=== PATIENT | female | born 1930 | race Caucasian/White ===

== ENCOUNTER 2017-03-01 10:04 | Day surgery (SDC) | payer OTHER ==
[2017-03-01] MEDS ORDERED: fentaNYL 100 MCG/2 ML INJ IVP ONE (10:08)
[2017-03-01] MEDS ORDERED: PROPOFOL 200 MG/20 ML VIAL IVP ONE (10:08)
[2017-03-01] MEDS ORDERED: MIDAZOLAM 2 MG/2 ML VIAL IVP ONE (10:08)
[2017-03-01] MEDS ORDERED: NS 500 ML IV ONE (10:08)
[2017-03-01] MEDS ORDERED: ETOMIDATE 20 MG/10 ML VIAL IVP ONE (10:08)
[2017-03-01] MEDS ORDERED: ETOMIDATE 40 MG/20 ML INJ ONE (10:10)
[2017-03-01] MEDS ORDERED: fentaNYL 100 MCG/2 ML INJ ONE (10:11)
[2017-03-01] MEDS ORDERED: MIDAZOLAM 2 MG/2 ML VIAL ONE (10:11)
--- NOTE | 2017-03-01 10:25 | CPEKG ---
Heart Rate: 145 RR Interval: 414 QRSD Interval: 84 QT Interval: 320 QTC Interval: 497 QRS [place]: -60 T Wave [place]: -43 EKG Severity - ABNORMAL ECG - EKG Impression: ATRIAL FIBRILLATION, V-RATE 81-160 EKG Impression: LEFT ANTERIOR FASCICULAR BLOCK EKG Impression: LOW VOLTAGE IN FRONTAL LEADS EKG Impression: REPOLARIZATION ABNORMALITY, PROB RATE RELATED EKG Impression: BORDERLINE PROLONGED QT INTERVAL EKG Impression: ATRIAL FIBRILLATION IS NEW IN COMPARISON TO PRIOR ECG Electronically Signed By: Johnathan Roman 02-Mar-2017 14:31:29
[2017-03-01 10:55] LABS: APTT 24.6 SEC (23.0-38.0); INR 1.04 (0.83-1.16); PROTIME(PATIENT) 13.5 SEC (12.0-15.0)
[2017-03-01 11:00] LABS: ANION GAP 10 mEq/L (8-16); CALCIUM 9.6 mg/dL (8.5-10.4); CARBON DIOXIDE 24 mEq/l (22-31); CHLORIDE 105 mEq/L (97-110); CREATININE 0.9 mg/dL (0.6-1.0); GLOMERULAR FILTRATION RATE 59; GLUCOSE 113 mg/dL (70-100); MAGNESIUM 2.2 mg/dL (1.6-2.3); SODIUM 139 mEq/L (134-144)
--- NOTE | 2017-03-01 12:15 | PDTEE1 ---
GREGOR Cardioversion Procedure Procedure: Electrical Cardioversion, Transesophageal Echo Indications: Atrial Fibrillation Consent: Signed and in Chart Anticoagulation: Heparin Procedural Details: The pads were placed in the anterior-posterior position and the GREGOR probe was advanced with standard images obtained. There was no evidence of left atrial or left atrial appendage thrombus. Synchronized cardioversion attempt #1: 200J Results: Normal sinus rhythm Conclusions: Successful GREGOR Cardioversion Patient Problems: Problems Problem Status Onset Hypertension Acute Near syncope Acute
--- NOTE | 2017-03-01 12:26 | CPEKG ---
Heart Rate: 75 RR Interval: 800 P-R Interval: 160 QRSD Interval: 88 QT Interval: 404 QTC Interval: 452 P [place]: 36 QRS [place]: -64 T Wave [place]: 7 EKG Severity - ABNORMAL ECG - EKG Impression: SINUS RHYTHM EKG Impression: LEFT ANTERIOR FASCICULAR BLOCK EKG Impression: BORDERLINE T ABNORMALITIES, ANTERIOR LEADS EKG Impression: NORMAL SINUS RHYTHM HAS REPLACED ATRIAL FIBRILLATION Electronically Signed By: Johnathan Roman 02-Mar-2017 14:31:49
== END 2017-03-01 14:33 | disposition home or self-care (01) ==
LOC: FCATH 10:04
PROVIDERS: ATTEND Internal Medicine Cardiovascular Disease
DX: I48.91 Unspecified atrial fibrillation (principal); I10 Essential (primary) hypertension; I65.29 Occlusion and stenosis of unspecified carotid artery; E78.5 Hyperlipidemia, unspecified; I08.0 Rheumatic disorders of both mitral and aortic valves
CPT/HCPCS: J1642; J2250; J3010

== ENCOUNTER → 2017-10-23 | Outpatient (CLI) | payer OTHER | LOC: FIMAGING 09:12 | PROVIDERS: ATTEND Family Medicine | DX: Z12.31 Encounter for screening mammogram for malignant neoplasm of breast (principal); Z13.820 Encounter for screening for osteoporosis; M85.89 Other specified disorders of bone density and structure, multiple sites | CPT/HCPCS: G0202 ==

== ENCOUNTER 2018-02-20 13:53 | Emergency (ER) | payer OTHER ==
[2018-02-20] MEDS ORDERED: NS 1,000 ML IV ONE (14:16)
[2018-02-20] MEDS ORDERED: DILTIAZEM 25 MG/5 ML VIAL IVP ONE (14:16)
--- NOTE | 2018-02-20 14:22 | EDPHY ---
H & P Stated Complaint: dizzy/tachycardia/irreg pulse with hx afib since monday Time Seen by Provider: 02/20/18 14:10 HPI/ROS: CHIEF COMPLAINT: Atrial fibrillation HISTORY OF PRESENT ILLNESS: The patient is an 87-year-old female who presented to her primary today complaining of weakness and palpitations since Monday. She had a fainting episode as well on Monday. Her primary noticed that she was in atrial fibrillation and sent her to the ER. She does have a history of this and sees Dr. Chaney at [facility]. She is taking Eliquis faithfully. She denies any history of stroke or seizures. She denies any history of coronary artery disease. She has been cardioverted successfully in the past. She has not had any recent fevers or infections. No chest pain or nausea vomiting. REVIEW OF SYSTEMS: Constitutional: denies: chills, fever, recent illness, recent injury EENTM: denies: blurred vision, double vision, nose congestion Respiratory: denies: cough, shortness of breath Cardiac: See HPI Gastrointestinal/Abdominal: denies: abdominal pain, diarrhea, nausea, vomiting, blood streaked stools Genitourinary: denies: dysuria, frequency, hematuria, pain Musculoskeletal: denies: joint pain, muscle pain Skin: denies: lesions, rash, jaundice, bruising Neurological: denies: headache, numbness, paresthesia, tingling, dizziness, weakness Hematologic/Lymphatic: denies: blood clots, easy bleeding, easy bruising Immunologic/allergic: denies: HIV/AIDS, transplant EXAM: GENERAL: Well-appearing, well-nourished and in no acute distress. HEAD: Atraumatic, normocephalic. EYES: Pupils equal round and reactive to light, extraocular movements intact, sclera anicteric, conjunctiva are normal. ENT: TMs normal, nares patent, oropharynx clear without exudates. Moist mucous membranes. NECK: Normal range of motion, supple without lymphadenopathy or JVD. LUNGS: Breath sounds clear to auscultation bilaterally and equal. No wheezes rales or rhonchi. HEART: Irregular rhythm without murmurs, rubs or gallops. ABDOMEN: Soft, nontender, normoactive bowel sounds. No guarding, no rebound. No masses appreciated. BACK: No CVA tenderness, no spinal tenderness, step-offs or deformities EXTREMITIES: Normal range of motion, no pitting or edema. No clubbing or cyanosis. NEUROLOGICAL: Cranial nerves II through XII grossly intact. Normal speech, normal gait. 5/5 strength, normal movement in all extremities, normal sensation PSYCH: Normal mood, normal affect. SKIN: Warm, dry, normal turgor, no visible rashes or lesions. Source: Patient - Personal History Current Tetanus/Diphtheria Vaccine: Unsure Tetanus Vaccine Date: 2005 - Medical/Surgical History Hx Asthma: No Hx Chronic Respiratory Disease: No Hx Diabetes: No Hx Cardiac Disease: Yes Hx Renal Disease: No Hx Cirrhosis: No Hx Alcoholism: No Hx HIV/AIDS: No Hx Splenectomy or Spleen Trauma: No Other PMH: HTN, appendectomy, anxiety afib - Family History Significant Family History: No pertinent family hx - Social History Smoking Status: Never smoked Alcohol Use: Sober Drug Use: None Constitutional: Initial Vital Signs Temperature (C) 36.5 C 02/20/18 14:00 Heart Rate 145 H 02/20/18 14:00 Respiratory Rate 20 02/20/18 14:00 Blood Pressure 115/89 H 02/20/18 14:00 O2 Sat (%) 98 02/20/18 14:00 O2 Delivery Mode [Procedural Non-Rebreather Mask 4th] O2 Delivery Mode [Procedural Non-Rebreather Mask 3rd] O2 Delivery Mode [Post Non-Rebreather Mask Procedure 2nd] O2 Delivery Mode [Post Non-Rebreather Mask Procedure 1st] O2 Delivery Mode [.Immediate Non-Rebreather Mask Pre-Procedure] O2 Delivery Mode Room Air O2 (L/minute) [Procedural 4th] 15 O2 (L/minute) [Procedural 3rd] 15 O2 (L/minute) [Post Procedure 15 2nd] O2 (L/minute) [Post Procedure 15 1st] O2 (L/minute) [.Immediate Pre- 15 Procedure] O2 (L/minute) 15 Allergies/Adverse Reactions: No Known Allergies Allergy (Verified 02/20/18 13:59) Home Medications: Medication Instructions Recorded Acetaminophen [Tylenol 325mg (*)] 650 mg PO BID PRN 03/19/13 Herbals/Supplements -Info Only 1 each PO AD 03/19/13 Melatonin [Melatonin 3 MG (*)] 3 mg PO HS 03/19/13 Multivitamins [Multivitamin (*)] 1 each PO DAILY 03/19/13 Psyllium Husk (with Sugar) 1 each PO DAILY PRN 03/19/13 [Metamucil Packet] busPIRone HCL [Buspirone HCl] 15 mg PO TID 03/19/13 Aspirin EC [Aspirin EC 81 mg (*)] 81 mg PO DAILY 02/09/16 Losartan Potassium [Cozaar 50 mg 50 mg PO BID@12,18 02/09/16 (*)] Pravastatin Sodium 20 mg PO DAILY 02/09/16 traZODone [traZODONE 50MG (*)] 25 mg PO HS 02/09/16 Labetalol HCl [Trandate 200 mg (*)] 400 mg PO DAILY #90 tab 02/10/16 amLODIPine BESYLATE [Norvasc 5 mg 5 mg PO DAILY #30 tab 02/10/16 (*)] DULoxetine 08/21/16 Eliquis 02/20/18 Medical Decision Making - Diagnostics EKG Interpretation: An EKG obtained and was read and documented in trace view. Please see trace view for full reading and report. Atrial fibrillation, no acute ischemic changes A repeat EKG obtained and was read and documented in trace view. Please see trace view for full reading and report. Sinus rhythm, no acute ischemic changes single PAC Imaging Results: Imaging Impressions Chest X-Ray 02/20/18 14:17 Impression: Chronic cardiomegaly without decompensation or underlying pneumonia. Imaging: Discussed imaging studies w/ call center recruiter Radiologist Procedures: ED cardioversion: The patient was sedated with ketamine and propofol. She was cardioverted with seeing to 120 joules. She is cardioverted successfully in the 1st attempt. She tolerated the procedure well. Repeat EKG is reassuring. ED Course/Re-evaluation: 3:50 p.m. I discussed the case with Dr. Shayne Guardado who recommends cardioversion here in the ER and follow up with Dr. Chaney. As long as she is confident she has not missed any doses of Eliquis. 5:00 p.m. the patient is feeling completely better. She is eager to go home. Her daughter is well to take her. She remains in sinus rhythm and has stable vital signs. She will follow up with car framer next day or 2. They did not recommend any changed her medications at this time. Differential Diagnosis: Partial list of the Differential diagnosis considered include but were not limited to; atrial fibrillation, anxiety, dehydration, electrolyte abnormality and although unlikely based on the history and physical exam, I also considered SVT, acute coronary disease. - Data Points Laboratory Results: Laboratory Results 02/20/18 14:22 02/20/18 14:22 02/20/18 02/20/18 02/20/18 14:22 14:22 14:22 WBC 8.54 10^3/uL 10^3/uL (3.80-9.50) RBC 5.15 10^6/uL 10^6/uL (4.18-5.33) Hgb 15.0 g/dL g/dL (12.6-16.3) Hct 45.3 % % (38.0-47.0) MCV 88.0 fL fL (81.5-99.8) MCH 29.1 pg pg (27.9-34.1) MCHC 33.1 g/dL g/dL (32.4-36.7) RDW 12.9 % % (11.5-15.2) Plt Count 273 10^3/uL 10^3/uL (150-400) MPV 8.8 fL fL (8.7-11.7) Neut % (Auto) 72.0 % % (39.3-74.2) Lymph % (Auto) 18.1 % % (15.0-45.0) [place] % (Auto) 8.7 % % (4.5-13.0) Eos % (Auto) 0.6 % % (0.6-7.6) Baso % (Auto) 0.4 % % (0.3-1.7) Nucleat RBC Rel Count 0.0 % % (0.0-0.2) Absolute Neuts (auto) 6.15 10^3/uL 10^3/uL (1.70-6.50) Absolute Lymphs (auto) 1.55 10^3/uL 10^3/uL (1.00-3.00) Absolute Monos (auto) 0.74 10^3/uL 10^3/uL (0.30-0.80) Absolute Eos (auto) 0.05 10^3/uL 10^3/uL (0.03-0.40) Absolute Basos (auto) 0.03 10^3/uL 10^3/uL (0.02-0.10) Absolute Nucleated RBC 0.00 10^3/uL 10^3/uL (0-0.01) Immature Gran % 0.2 % % (0.0-1.1) Immature Gran # 0.02 10^3/uL 10^3/uL (0.00-0.10) PT 13.8 SEC SEC (12.0-15.0) INR 1.04 (0.83-1.16) APTT 28.2 SEC SEC (23.0-38.0) Sodium 137 mEq/L mEq/L (135-145) Potassium 4.7 mEq/L mEq/L (3.5-5.2) Chloride 104 mEq/L mEq/L (97-110) Carbon Dioxide 21 mEq/l L mEq/l (22-31) Anion Gap 12 mEq/L mEq/L (8-16) BUN 19 mg/dL mg/dL (7-23) Creatinine 0.8 mg/dL mg/dL (0.6-1.0) Estimated GFR > 60 Glucose 103 mg/dL H mg/dL (70-100) Calcium 9.9 mg/dL mg/dL (8.5-10.4) Troponin I < 0.012 ng/mL ng/mL (0.000-0.034) Medications Given: Discontinued Medications Diltiazem HCl (Cardizem) 10 mg IV EDNOW ONE Stop: 02/20/18 15:01 Last Admin: 02/20/18 14:59 Dose: 10 mg Sodium Chloride (Ns) 1,000 mls @ 0 mls/hr IV EDNOW ONE; Wide Open PRN Reason: Protocol Stop: 02/20/18 14:17 Last Admin: 02/20/18 14:58 Dose: 1,000 mls Ketamine HCl (Ketamine) 50 mg IVP EDNOW ONE Stop: 02/20/18 16:16 Last Admin: 02/20/18 16:17 Dose: 50 mg Propofol (Diprivan) 40 mg IVP EDNOW ONE Stop: 02/20/18 16:16 Last Admin: 02/20/18 16:19 Dose: 40 mg Departure - Departure Disposition: Home, Routine, Self-Care Clinical Impression: Atrial fibrillation Qualifiers: Atrial fibrillation type: paroxysmal Qualified Code(s): I48.0 - Paroxysmal atrial fibrillation Condition: Fair Instructions: A-fib (Atrial Fibrillation) (ED), Cardioversion (DC), Procedural Sedation (ED) Additional Instructions: FOLLOW UP WITH YOUR POULTRY TRIMMER THIS WEEK, RETURN TO EMERGENCY DEPARTMENT FOR CONCERNS OR RETURN OF SYMPTOMS. CONTINUE YOUR REGULAR MEDICATIONS. Referrals: Key Tang MD [Primary Care Provider] - As per Instructions Papa Chaney MD [Medical Doctor] - 2-3 days, call for appt.
--- NOTE | 2018-02-20 14:28 | CPEKG ---
Heart Rate: 139 RR Interval: 432 QRSD Interval: 88 QT Interval: 316 QTC Interval: 481 QRS [place]: -52 T Wave [place]: -38 EKG Severity - ABNORMAL ECG - EKG Impression: ATRIAL FIBRILLATION, V-RATE 95-170 EKG Impression: MULTIFORM VENTRICULAR PREMATURE COMPLEXES EKG Impression: LEFT ANTERIOR FASCICULAR BLOCK EKG Impression: LOW VOLTAGE IN FRONTAL LEADS Electronically Signed By: Ricky Key 20-Feb-2018 14:36:09
[2018-02-20 14:38] LABS: PLATELET COUNT 273 10^3/uL (150-400)
[2018-02-20 14:47] LABS: INR 1.04 (0.83-1.16); PROTIME(PATIENT) 13.8 SEC (12.0-15.0)
[2018-02-20] MEDS ORDERED: DILTIAZEM 50 MG/10 ML VIAL IV ONE (15:00)
[2018-02-20] MEDS ORDERED: PROPOFOL 200 MG/20 ML VIAL ONE (16:03)
[2018-02-20] MEDS ORDERED: KETAMINE 200 MG/20 ML VIAL ONE (16:03)
[2018-02-20] MEDS ORDERED: KETAMINE 200 MG/20 ML VIAL IVP ONE (16:15)
[2018-02-20] MEDS ORDERED: PROPOFOL 200 MG/20 ML VIAL IVP ONE (16:15)
--- NOTE | 2018-02-20 16:30 | CPEKG ---
Heart Rate: 77 RR Interval: 779 P-R Interval: 164 QRSD Interval: 92 QT Interval: 404 QTC Interval: 458 P [place]: 33 QRS [place]: -66 T Wave [place]: -12 EKG Severity - ABNORMAL ECG - EKG Impression: SINUS RHYTHM EKG Impression: ATRIAL PREMATURE COMPLEX EKG Impression: LEFT ANTERIOR FASCICULAR BLOCK EKG Impression: BORDERLINE T ABNORMALITIES, DIFFUSE LEADS Electronically Signed By: Ricky Key 20-Feb-2018 17:22:10
[2018-02-20 17:21] VITALS: BP 134/84
== END 2018-02-20 17:32 | disposition home or self-care (01) ==
PROC: 5A2204Z Restoration of Cardiac Rhythm, Single (ICD-10-PCS; principal; 2018-02-20)
DX: I48.0 Paroxysmal atrial fibrillation (principal); I10 Essential (primary) hypertension; Z79.82 Long term (current) use of aspirin
CPT/HCPCS: 71046; 92960; 93005; 96361; 96374; 99285; J2704

== ENCOUNTER 2019-03-22 08:18 | Day surgery (SDC) | payer OTHER ==
[2019-03-22] MEDS ORDERED: ATROPINE SULFATE 1 MG/10 ML SYR IVP ONE (08:20)
[2019-03-22] MEDS ORDERED: NS 500 ML IV ONE (08:20)
[2019-03-22] MEDS ORDERED: fentaNYL 100 MCG/2 ML INJ IVP ONE (08:20)
[2019-03-22] MEDS ORDERED: BENZOCAINE UNIT DOSE SPRAY HURRICAINE MM ONE (08:20)
[2019-03-22] MEDS ORDERED: MIDAZOLAM 2 MG/2 ML VIAL IVP ONE (08:20)
--- NOTE | 2019-03-22 09:07 | PDANEPAE ---
ANE History of Present Illness CV poss. GREGOR ANE Past Medical History - Cardiovascular History Hx Hypertension: Yes Hx Arrhythmias: Yes Hx Coronary Artery / Peripheral Vascular Disease: Yes Cardiovascular History Comment: LVH - Pulmonary History Hx Oxygen in Use at Home: No Hx Sleep Apnea: No - Endocrine History Hx Diabetes: No - Chronic Pain History Chronic Pain: No ANE Review of Systems Review of Systems: fatigue - Exercise capacity Exercise capacity: <4 METS ANE Patient History - Allergies Allergies/Adverse Reactions: No Known Allergies Allergy (Verified 02/20/18 13:59) - Home Medications Home medications: home medication list seen and reviewed Home Medications: Acetaminophen [Tylenol 325mg (*)] 650 mg PO BID PRN 03/19/13 [Last Taken ] Herbals/Supplements -Info Only 1 each PO AD 03/19/13 [Last Taken 03/21/19] Melatonin [Melatonin 3 MG (*)] 3 mg PO HS 03/19/13 [Last Taken 02/08/16] Multivitamins [Multivitamin (*)] 1 each PO DAILY 03/19/13 [Last Taken 03/21/19] Psyllium Husk (with Sugar) [Metamucil Packet] 1 each PO DAILY PRN 03/19/13 [ Last Taken 02/09/16] busPIRone HCL [Buspirone HCl] 15 mg PO TID 03/19/13 [Last Taken 03/22/19] Aspirin EC [Aspirin EC 81 mg (*)] 81 mg PO DAILY 02/09/16 [Last Taken 03/21/19] Losartan Potassium [Cozaar 50 mg (*)] 50 mg PO BID@12,18 02/09/16 [Last Taken ] Pravastatin Sodium 20 mg PO DAILY 02/09/16 [Last Taken 03/21/19] traZODone [traZODONE 50MG (*)] 25 mg PO HS 02/09/16 [Last Taken 03/21/19] DULoxetine 30 mg PO DAILY 08/21/16 [Last Taken 03/21/19] Eliquis 2.5 mg PO BID 02/20/18 [Last Taken 03/22/19] Magnesium 250 mg PO DAILY 03/22/19 [Last Taken 03/21/19] - NPO status NPO Status: no food or drink >8 hours - Anes Hx Anes Hx: no prior problems - Smoking Hx Smoking Status: Never smoked - Family Anes Hx Family Anes Hx: none ANE Labs/Vital Signs - Labs Result Diagrams: 03/22/19 08:45 - Vital Signs Vital Signs: reviewed preoperatively; see RN documention for details Height: 168 cm Weight: 78.9 kg ANE Physical Exam - Airway Neck exam: FROM Mallampati Score: Class 2 Mouth exam: normal dental/mouth exam - Cardiovascular Cardiovascular: irregularly irregular - ASA Status ASA Status: III ANE Anesthesia Plan Total IV Anesthesia: Yes
[2019-03-22] MEDS ORDERED: PROPOFOL 200 MG/20 ML VIAL ONE (09:14)
[2019-03-22 09:23] LABS: INR 1.1 (0.83-1.16); PROTIME(PATIENT) 13.8 SEC (12.0-15.0)
--- NOTE | 2019-03-22 09:24 | POSTANESTH ---
Post Anesthetic Evaluation Cardiovascular Status: Similar to Pre-Op Cond Respiratory Status: Normal, Stable, Similar to Pre-op Cond. Level of Consciousness/Mental Status: Can Participate in Eval, Moderately Sleepy Pain Control: Adequate, Prn Tx Ordered Nausea/Vomiting Control: Adequate, Prn Tx Ordered Complications Possibly Related to Anesthesia: None Noted
--- NOTE | 2019-03-22 09:26 | PDHPUP ---
History & Physical Update H&P update statement: This history and physical update is based on an assessment of the patient which was completed after admission or registration (within 24 hours), but prior to the surgery/procedure. H&P update: H&P reviewed & patient examined, no change in patient's condition since H&P completed H&P changes: No changes in status since the patient was seen on March 19, 2019. Atrial fibrillation is noted on telemetry, and uninterrupted Eliquis therapy is validated.
--- NOTE | 2019-03-22 09:38 | PDCARD ---
Cardioversion Procedure Procedure: electrical cardioversion Indications: atrial fibrillation Consent: signed and in chart Anticoagulation: eliquis Procedural Details: PROCEDURE: (1) Anesthesia guided sedation (2) Cardioversion - no GREGOR with uninterrupted Eliquis therapy INDICATION: Newly appreciated atrial fibrillation (with symptoms) DETAILS: After consents for sedation and cardioversion were signed and placed in chart, a time out was performed. Vital signs were monitored real time as the procedure progressed. Sedation was induced, and after patient was noted to be moderately sedated, a single, synchronized cardioversion (200J) was performed with conversion from atrial fibrillation (105 bpm) to normal sinus rhythm (75 bpm). No complications were appreciated Patient tolerated the procedure without complications. Outpatient follow up with cardiology is scheduled. Synchronized cardioversion attempt #1: 200J Results: normal sinus rhythm Conclusions: successful cardioversion Patient Problems: Problems Problem Status Onset Hypertension Acute Near syncope Acute
--- NOTE | 2019-03-23 07:31 | CPEKG ---
Test Reason : OPEN Blood Pressure : / mmHG Vent. Rate : 106 BPM Atrial Rate : 109 BPM P-R Int : 048 ms QRS Dur : 097 ms QT Int : 354 ms P-R-T Axes : 000 -78 -36 degrees QTc Int : 471 ms Atrial fibrillation Confirmed by Carl Guerrier ([id number]) on 03/23/2019 7:31:04 AM Referred By: Johnathan Roman Confirmed By:Carl Guerrier
--- NOTE | 2019-03-23 07:33 | CPEKG ---
Test Reason : OPEN Blood Pressure : / mmHG Vent. Rate : 064 BPM Atrial Rate : 065 BPM P-R Int : 174 ms QRS Dur : 103 ms QT Int : 423 ms P-R-T Axes : 039 -70 -04 degrees QTc Int : 437 ms Sinus rhythm Atrial premature complexes Left anterior fascicular block Low voltage, extremity and precordial leads Confirmed by Carl Guerrier ([id number]) on 03/23/2019 7:32:17 AM Referred By: Johnathan Roman Confirmed By:Carl Guerreir
== END 2019-03-22 10:51 | disposition home or self-care (01) ==
LOC: FCATH 08:18
PROVIDERS: ATTEND Internal Medicine Cardiovascular Disease
PROC: 5A2204Z Restoration of Cardiac Rhythm, Single (ICD-10-PCS; principal; 2019-03-22)
DX: I48.0 Paroxysmal atrial fibrillation (principal); I10 Essential (primary) hypertension; R06.02 Shortness of breath; I65.29 Occlusion and stenosis of unspecified carotid artery; E78.5 Hyperlipidemia, unspecified; I34.0 Nonrheumatic mitral (valve) insufficiency; Z79.01 Long term (current) use of anticoagulants
CPT/HCPCS: J0461; J2704